=== PATIENT | male | born 1960 | race Caucasian/White ===

== ENCOUNTER 2017-04-05 13:42 | Emergency (ER) | payer OTHER ==
[2017-04-05 13:46] VITALS: PULSE 55; RESP 18; TEMP 97.7
[2017-04-05] MEDS ORDERED: SODIUM CHLORIDE 0.9% 500 ML IV STA (13:56)
[2017-04-05] MEDS ORDERED: HYDROmorphone 1 MG/ML 1 ML SYRINGE IVP STA (13:56)
--- NOTE | 2017-04-05 14:00 | ED ---
General Adult HPI - General Chief complaint: Abdominal Pain Stated complaint: Abd Pain Time Seen by Provider: 04/05/17 13:50 Source: family, RN notes reviewed Mode of arrival: ambulatory Limitations: no limitations - History of Present Illness Initial comments: 56-year-old male presents to the emergency department with a chief complaint of umbilical hernia. Patient has a history of umbilical hernia. Patient states normally popped back in without difficulty. Patient states that today it popped out around 10:00 this morning and he's been unable to return is normal. Patient states that he has not had any nausea or vomiting with this. Patient states just his pain at the site worse to pushing on it.Patient denies any recent fever, chills, shortness of breath, chest pain, back pain, , nausea vomiting, numbness or tingling, dysuria or hematuria, constipation or diarrhea, headaches or visual changes, or any other current symptoms. - Related Data Home Medications Medication Instructions Recorded Confirmed No Known Home Medications [No 04/05/17 04/05/17 Known Home Medications] Allergies Allergy/AdvReac Type Severity Reaction Status Date / Time No Known Allergies Allergy Verified 04/05/17 14:12 Review of Systems ROS Statement: Those systems with pertinent positive or pertinent negative responses have been documented in the HPI. ROS Other: All systems not noted in ROS Statement are negative. Past Medical History Past Medical History: No Reported History Additional Past Medical History / Comment(s): hernia History of Any Multi-Drug Resistant Organisms: None Reported Past Surgical History: No Surgical Hx Reported Past Psychological History: No Psychological Hx Reported Smoking Status: Never smoker Past Alcohol Use History: Occasional Past Drug Use History: None Reported General Exam - General Exam Comments Initial Comments: General: The patient is awake and alert, in no distress, and does not appear acutely ill. Eye: Pupils are equal, round. Ears, nose, mouth and throat: There are moist mucous membranes. Neck: The neck is supple, there is no tenderness. Cardiovascular: There is a regular rate and rhythm. No murmur, rub or gallop is appreciated. Respiratory: Lungs are clear to auscultation, respirations are non-labored, breath sounds are equal. No wheezes, stridor, rales, or rhonchi. Gastrointestinal: Umbilical hernia hard to palpation. Soft, non-distended, non- tender abdomen without masses or organomegaly noted. There is no rebound or guarding present. No CVA tenderness. Bowel sounds are unremarkable. Musculoskeletal: Normal ROM, no tenderness, There is no pedal edema. There is no calf tenderness or swelling. Sensation intact. Pulses equal bilaterally 2+. Neurological: CN II-XII intact, There are no obvious motor or sensory deficits. Coordination appears grossly intact. Speech is normal. Skin: Skin is warm and dry and no rashes or lesions are noted. Psychiatric: Cooperative, appropriate mood & affect, normal judgment. Limitations: no limitations Course Vital Signs 04/05/17 04/05/17 13:44 14:13 Temperature 97.7 F Pulse Rate 55 L 55 L Respiratory 18 18 Rate Blood Pressure 152/78 152/86 O2 Sat by Pulse 100 99 Oximetry Procedures - Procedures Initial comment: Patient was placed in Trendelenburg and ice packs were placed upon his abdomen. He sat for 30 minutes and pain medication given. Pressure was given to the abdomen. The umbilical hernia was reduced. Medical Decision Making - Medical Decision Making 56-year-old male presents to the emergency department with what appears to be an umbilical hernia. We were able to reduce this here in the emergency department. This time we discussed follow-up with surgery given follow-up information. We discussed return parameters and all his questions. He stated he understood all questions have been answered. He will be discharged. Disposition Clinical Impression: Umbilical hernia Disposition: HOME SELF-CARE Condition: Stable Instructions: Umbilical Hernia (ED) Additional Instructions: Please use medication as discussed. Please follow up with family doctor if symptoms have not improved over the next two days. Please return to the emergency room if your symptoms increase or worsen or for any other concerns. Referrals: Primo Richard DO [Primary Care Provider] - 1-2 days Shadia Mary MD [STAFF PHYSICIAN] - 1-2 days Time of Disposition: 14:38
[2017-04-05 14:37] LABS: Basophils # (A) 0.1 k/uL (0-0.2); Basophils % (A) 1 %; CH 32.9; CHCM 33.6; Eosinophils # (A) 0.1 k/uL (0-0.7); Eosinophils % (A) 1 %; HCT 49.3 % (39.0-53.0); HDW 2.06; Luc # (Auto) 0.12; Luc % (Auto) 2; Lymphocytes # (A) 0.5 k/uL (1.0-4.8); Lymphocytes % (A) 8 %; MCH 31.8 pg (25.0-35.0); MCHC 32.4 g/dL (31.0-37.0); MCV 98.3 fL (80.0-100.0); Mean Platelet Volume 7.4; Monocytes # (A) 0.4 k/uL (0-1.0); Monocytes % (A) 6 %; Neutrophils # (A) 5.2 k/uL (1.3-7.7); Neutrophils % (A) 83 %; RBC 5.01 m/uL (4.30-5.90); RDW 14.5 % (11.5-15.5); WBC 6.3 k/uL (3.8-10.6); WBC (Perox) 5.84
[2017-04-05 14:45] LABS: ALT 69 U/L (21-72); AST 37 U/L (17-59); Alkaline Phosphatase 59 U/L (38-126); Anion Gap 12 mmol/L; Blood Urea Nitrogen 16 mg/dL (9-20); Calcium 9.8 mg/dL (8.4-10.2); Carbon Dioxide 27 mmol/L (22-30); Chloride 102 mmol/L (98-107); Glucose 121 mg/dL (74-99); Non-African American GFR(MDRD) >60 (>60 ml/min/1.73 sqM); Potassium 4.1 mmol/L (3.5-5.1); Sodium 141 mmol/L (137-145); Total Bilirubin 0.7 mg/dL (0.2-1.3); Total Protein 7.8 g/dL (6.3-8.2)
[2017-04-05 14:47] VITALS: BP 138/81
== END 2017-04-05 14:47 | disposition home or self-care (01) ==
LOC: EC 13:42
DX: K42.9 Umbilical hernia without obstruction or gangrene (principal)
CPT/HCPCS: 36415; 80053; 83605; 85025; 99284; 96374; J1170

== ENCOUNTER → 2017-05-01 | Outpatient (CLI) | payer OTHER ==
--- NOTE | 2017-05-01 10:48 | CT ---
EXAMINATION TYPE: CT abdomen pelvis w con DATE OF EXAM: 05/01/2017 COMPARISON: NONE INDICATION: umbilical hernia DLP: 1697.70 mGycm, Automated exposure control for dose reduction was used. CONTRAST: 100 mL of Omnipaque 300. Study performed with Oral Contrast TECHNIQUE: Axial images were obtained from above the diaphragm to the pubic rami in the axial plane a t 5 mm thick sections. Reconstructed images are reviewed on the computer in the coronal plane. FINDINGS: Limited CT sections are obtained the lung bases. The lung bases are clear. CT ABDOMEN: Liver: Normal Spleen: Normal Pancreas: Normal Adrenal glands: The adrenal glands are normal. Gallbladder: Normal Kidneys: No masses are evident. No hydronephrosis is present. No cysts are present. Delayed images were obtained through the kidneys, which remain unremarkable. Aorta: Normal Inferior vena cava: Normal. CT PELVIS: In the periumbilical region there is an area of increased density with an opening of an es timated 0.6 cm and measuring 4.2 x 4.9 cm in size. Incarcerated mesenteric fat should be considered. No loops of bowel appear to be involved. Loops of bowel within the abdomen and pelvis are normal. There are loops of bowel which are incom pletely distended or lack oral contrast limiting their evaluation. Appendix: Normal as visualized. Urinary bladder: Normal. Genitourinary structures: Prostate contains calcification. Osseous structures: No suspicious lytic or sclerotic lesions. IMPRESSIONS: 1. Periumbilical hernia containing mesenteric fat. This has increased density incarceration should b e considered. No loops of bowel appear to be involved.
== END | disposition home or self-care (01) ==
LOC: RADCTMAIN 09:00
PROVIDERS: ATTEND Surgery
DX: K42.9 Umbilical hernia without obstruction or gangrene (principal)
CPT/HCPCS: 74177; Q9967

== ENCOUNTER → 2017-10-09 | Outpatient (CLI) | payer OTHER ==
[2017-10-09 11:39] LABS: HCT 44.5 % (39.0-53.0); HGB 14.4 gm/dL (13.0-17.5); MCH 30.2 pg (25.0-35.0); MCHC 32.3 g/dL (31.0-37.0); MCV 93.6 fL (80.0-100.0); Mean Platelet Volume 6.9; Platelet Count 248 k/uL (150-450); RBC 4.75 m/uL (4.30-5.90); RDW 13.2 % (11.5-15.5); WBC 5.4 k/uL (3.8-10.6)
[2017-10-09 11:58] LABS: Partial Thromboplastin Time 22.4 sec (22.0-30.0); Prothrombin Time 9.9 sec (9.0-12.0)
[2017-10-10 16:30] LABS: ALT 57 U/L (21-72); AST 29 U/L (17-59); Albumin 4.1 g/dL (3.5-5.0); Alkaline Phosphatase 61 U/L (38-126); Anion Gap 11 mmol/L; Blood Urea Nitrogen 19 mg/dL (9-20); Calcium 9.8 mg/dL (8.4-10.2); Carbon Dioxide 27 mmol/L (22-30); Chloride 103 mmol/L (98-107); Glucose 118 mg/dL (74-99); Potassium 4.5 mmol/L (3.5-5.1); Sodium 141 mmol/L (137-145); Total Bilirubin 0.4 mg/dL (0.2-1.3); Total Protein 7.5 g/dL (6.3-8.2)
== END | disposition home or self-care (01) ==
LOC: LABPAT 10:45
PROVIDERS: ATTEND Surgery Plastic and Reconstructive Surgery
DX: Z01.818 Encounter for other preprocedural examination (principal); Z01.812 Encounter for preprocedural laboratory examination; I10 Essential (primary) hypertension; N40.1 Benign prostatic hyperplasia with lower urinary tract symptoms; K43.9 Ventral hernia without obstruction or gangrene
CPT/HCPCS: 36415; 80053; 84153; 85027; 85610; 85730; 93005

== ENCOUNTER 2017-10-12 07:27 | Day surgery (SDC) | payer OTHER ==
[2017-10-09 16:37] VITALS: BMI 34.0
--- NOTE | 2017-10-12 00:39 | P.GSHP ---
History of Present Illness H&P Date: 10/12/17 CHIEF COMPLAINT: Ventral hernia. HISTORY OF PRESENT ILLNESS: The patient is a 57-year-old male who presents with a history of swelling along the umbilicus. Findings were consistent with ventral hernia initial presentation. Now he presents for further evaluation and management. PAST MEDICAL HISTORY: Please see list. PAST SURGICAL HISTORY: Please see list. MEDICATIONS: Please see list. ALLERGIES: Please see list. SOCIAL HISTORY: No illicit drug use FAMILY HISTORY: No reports of Crohn disease or ulcerative colitis. REVIEW OF ORGAN SYSTEMS: CONSTITUTIONAL: No reports of fevers or chills. GI: Denies any blood in stools or constipation. PHYSICAL EXAM: VITAL SIGNS: Stable GENERAL: Well-developed pleasant female in no acute distress. HEENT: No scleral icterus. Extraocular movements grossly intact. Moist buccal mucosa. NECK: Supple without lymphadenopathy. CHEST: Unlabored respirations. Equal bilateral excursions. CARDIOVASCULAR: Regular rate and rhythm. Distal 2+ pulses. ABDOMEN: Soft, nondistended. Palpable defect of the umbilicus. MUSCULOSKELETAL: No clubbing, cyanosis, or edema. ASSESSMENT: 1. Ventral hernia. PLAN: 1. Recommend proceeding with a robotic ventral hernia repair with mesh. 2. Benefits and risks of surgical intervention was discussed including possibility of open technique. 3. DVT prophylaxis. 4. Antibiotic prophylaxis. Past Medical History Past Medical History: No Reported History Additional Past Medical History / Comment(s): hernia,ulcerative colitis History of Any Multi-Drug Resistant Organisms: None Reported Past Surgical History: No Surgical Hx Reported Additional Past Surgical History / Comment(s): colonoscopy,cataract rt eye Past Anesthesia/Blood Transfusion Reactions: No Reported Reaction Additional Past Anesthesia/Blood Transfusion Reaction / Comment(s): never has had general anesthesia Smoking Status: Former smoker - Past Family History Mother Family Medical History: No Reported History Father Family Medical History: Cancer Medications and Allergies Home Medications Medication Instructions Recorded Confirmed Type No Known Home Medications [No 04/05/17 10/09/17 History Known Home Medications] Allergies Allergy/AdvReac Type Severity Reaction Status Date / Time No Known Allergies Allergy Verified 10/09/17 16:23
[~2017-10-12 07:27] MED LIST: DEXAMETHASONE SOD PHOSPHATE 10 MG/ML 1 ML VIAL IV ONE; HEPARIN SODIUM,PORCINE 5,000 UNIT/ML 1 ML VIAL SQ ONE; LACTATED RINGERS 1,000 ML IV SCH; LIDOCAINE 1% 20 ML VIAL (10MG/ML) FOR IV START INTRADERMA PRN; ONDANSETRON 4 MG/2 ML VIAL IVP ONE; SCOPOLAMINE 1.5MG/72HR PATCH TRANSDERM ONE; ceFAZolin IN SWFI 2 GM/20 ML SYRINGE IVP ONE; fentaNYL (PF) 50 MCG/ML 2 ML AMP IV PRN
[2017-10-12] MEDS ORDERED: BUPIVACAINE (PF) 0.25% 30 ML VIAL SQ ONE ×2 (10:29→12:00)
[2017-10-12] MEDS ORDERED: NEOSTIGMINE 1 MG/ML 10 ML VIAL ONE (10:36)
[2017-10-12] MEDS ORDERED: PROPOFOL 10 MG/ML 20 ML VIAL IV ONE (10:36)
[2017-10-12] MEDS ORDERED: SUCCINYLCHOLINE CHLORIDE 100 MG/5 ML SYR IV ONE (10:36)
[2017-10-12] MEDS ORDERED: KETOROLAC 30 MG/ML 1 ML VIAL ONE (10:36)
[2017-10-12] MEDS ORDERED: MIDAZOLAM 2 MG/2 ML VIAL ONE (10:36)
[2017-10-12] MEDS ORDERED: LIDOCAINE 1% INJ 10MG/ML (20 ML MDV) ONE (10:36)
[2017-10-12] MEDS ORDERED: fentaNYL (PF) 50 MCG/ML 2 ML AMP ONE (10:36)
[2017-10-12] MEDS ORDERED: HYDROmorphone (PF) 1 MG/ML ONE (10:36)
[2017-10-12] MEDS ORDERED: GLYCOPYRROLATE 0.2 MG/ML 2 ML VIAL ONE (10:36)
[2017-10-12] MEDS ORDERED: ROCURONIUM BROMIDE 10 MG/ML 10 ML VIAL IV ONE (10:36)
[2017-10-12] MEDS ORDERED: LACTATED RINGERS 1,000 ML IV ONE (11:07)
[2017-10-12 12:33] VITALS: RESP 16; TEMP 98.1
--- NOTE | 2017-10-12 12:48 | P.OP ---
Date of Procedure: 10/12/17 Description of Procedure: SURGEON: BRIONNA CARRILLO MD WARRANTY ADMINISTRATOR: Ashley Betancur PREOPERATIVE DIAGNOSES: 1. Umbilical ventral hernia with incarceration, initial 2. Obesity due to excess calories. 3. BMI 34.0. 4. Chronic alcohol use. POSTOPERATIVE DIAGNOSES: 1. Umbilical ventral hernia with incarceration, initial 2. Obesity due to excess calories. 3. BMI 34.0. 4. Chronic alcohol use. OPERATION: 1. Robotic-assisted da Kiersten Xi laparoscopic repair of umbilical ventral hernia 3 cm with Bard Vent[address]ight ST mesh 11.4 cm. ANESTHESIA: General with local anesthetic ESTIMATED BLOOD LOSS: 10 mL. SPECIMENS: None. COMPLICATIONS: None. INDICATIONS: The patient is a 57-year-old male who presents with umbilical hernia. Surgical intervention with laparoscopic versus robotic and open techniques were reviewed. Placement of mesh was also reviewed. Benefits and risks were thoroughly described. Informed consent was obtained. DESCRIPTION OF PROCEDURE: The patient was brought into the operating room and laid in supine position. After general induction, the abdomen had been prepped and draped in standard sterile fashion. Ioban draping was also placed. Prior to incision, a timeout protocol was confirmed with surgical team regarding the patient's name including procedures to be performed. The robot was primed prior to the procedure. A field block using local anesthetis was placed along hernia site including the proposed port sites. Initial incision was made with an #11 blade along the left upper quadrant. A 0 degree 5 mm laparoscopic trocar entry was performed. Diagnostic laparoscopy demonstrated incarcerated omentum along the umbilicus. A 8 mm trocar was placed below the xiphoid. Another 8-mm port was placed along the right upper abdomen. The 5-mm port was exchanged for an 8 mm robotic port of the left upper abdomen. Placements of the ports were 15 to 20 cm from the target anatomy and approximately 10 cm apart. Next, a 11.[address] mesh was entered into abdominal cavity with the rough side of the mesh marked. The [employer] XI robot was previously primed, prepped and draped then docked along the left side of the patient. I then sat at the robot [employer] Xi console where working arms of the robot including Bovie cautery connected to robotic scissors and graspers placed by the medical office assistant instructor. The hernia bordering fascia was cleaned of peritoneal fat to allow for 3 to 5 cm margin of the mesh. The incarcerated omentum was reduced into abdominal cavity using direct pressure over the umbilicus. Fluid and edematous tissue was reduced into the abdomen consistent with chronically incarcerated hernia. Next, hemostasis was checked with cautery. The hernia defect of 3-cm was oversewn using 0-V LOC with imbrication 2. Ventralight ST 11.4 cm mesh was placed with the rough side of the mesh toward the anterior abdominal wall. The smooth side was placed towards the bowel. The mesh was oversewn using 2-0 V LOC 9-inch x 2 from peritoneum to fascia to the mesh approach. A final endoscopic imaging was obtained. All instruments and pneumoperitoneum were evacuated from the abdominal cavity. The robot was undocked from the patient. I re-scrubbed into the case for closure of incisions. The specimen was removed from the abdominal cavity using the Endo Catch bag after widening the incision of the left upper quadrant. The fascia of was probed and less than 8 mm in size. Incisions were cleansed using saline and hydrogen peroxide solution. The incisions were closed using 4- 0 Monocryl in an interrupted subcuticular fashion. Dermabond was applied to the skin. Along the umbilicus, 4 x 4 was folded and used as umbilical dressing with Tegaderm. At the end of the procedure, needle, sponge, and instrument count had been verified correct by rn neurosurgical. The patient was taken to the postanesthesia care unit in stable condition with abdominal binder. FINDINGS: 1. Initial incarcerated umbilical ventral hernia 3 cm. 2. Extremely small left indirect hernia less than 8-mm in size. Plan - Discharge Summary New Discharge Prescriptions: New Ibuprofen [Motrin] 600 mg PO Q8HR PRN #30 tab PRN Reason: Pain HYDROcodone/APAP 5-325MG [[place] 5-325] 1 tab PO Q6HR PRN #15 tab PRN Reason: Pain Discharge Medication List HYDROcodone/APAP 5-325MG [[place] 5-325] 1 tab PO Q6HR PRN #15 tab 10/12/17 [Rx] Ibuprofen [Motrin] 600 mg PO Q8HR PRN #30 tab 10/12/17 [Rx] Follow up Appointment(s)/Referral(s): Brionna Carrillo MD [STAFF PHYSICIAN] - 10/30/17 Patient Instructions/Handouts: Ventral Hernia Repair (DC), Abdominal Binder ( GEN), Abdominal Binder (DC) Activity/Diet/Wound Care/Special Instructions: No lifting over 4 pounds in 4 weeks. Wear abdominal binder at all times. May shower. No bath tub soaks. Discharge Disposition: HOME SELF-CARE
[2017-10-12] MEDS ORDERED: HYDROcodone/APAP 5-325MG 1 EACH TAB PO ONE (13:43)
[2017-10-12 13:47] VITALS: BP 130/82; PULSE 64
== END 2017-10-12 14:29 | disposition home or self-care (01) ==
LOC: OR 07:27
PROVIDERS: ATTEND Surgery Plastic and Reconstructive Surgery
DX: K42.0 Umbilical hernia with obstruction, without gangrene (principal); K46.9 Unspecified abdominal hernia without obstruction or gangrene; E66.09 Other obesity due to excess calories; Z68.34 Body mass index [BMI] 34.0-34.9, adult; Z72.89 Other problems related to lifestyle; K51.90 Ulcerative colitis, unspecified, without complications; Z87.891 Personal history of nicotine dependence
CPT/HCPCS: 86900; 86901; 86850; 88302; 49653; C1781; J2250; J1644; J1100; J2710; J2405; J2001; J3010; J1885; J1170; J0330; J2704; J0690

== ENCOUNTER 2024-02-13 21:49 | Emergency (ER) | payer BC, OTHER ==
[2024-02-13 22:01] VITALS: RESP 20
[2024-02-13] MEDS: DIPH,PERTUS(ACELL)TETVAC-LF 0.5 ML VIAL IM ONE (23:06)
--- NOTE | 2024-02-14 00:06 | CT ---
EXAM: CT Head Without Intravenous Contrast CLINICAL HISTORY: ITS.REASON CT Reason: head injury loc TECHNIQUE: Axial computed tomography images of the head/brain without intravenous contrast. CTDI is 45.2 mGy and DLP is 1086 mGy-cm. This CT exam was performed using one or more of the following dose reduction techniques: automated exposure control, adjustment of the mA and/or kV according to patient size, and/or use of iterative reconstruction technique. COMPARISON: No relevant prior studies available. FINDINGS: No acute intracranial hemorrhage. No midline shift or mass effect. The territorial rodgers-white matter differentiation is maintained throughout. Age-related cerebral volume loss. Periventricular and subcortical white matter hypoattenuation, consistent with chronic microangiopathy. The visualized orbits appear grossly unremarkable. The calvarium is intact. LEFT parietal scalp laceration. The visualized paranasal sinuses and mastoid air cells are grossly clear. IMPRESSION: 1. No acute intracranial hemorrhage, midline shift, or mass effect. 2. LEFT parietal scalp laceration. EXAM: CT Cervical Spine Without Intravenous Contrast CLINICAL HISTORY: ITS.REASON CT Reason: head injury loc TECHNIQUE: Axial computed tomography images of the cervical spine without intravenous contrast. CTDI is 14.2 mGy and DLP is 406.1 mGy-cm. This CT exam was performed using one or more of the following dose reduction techniques: automated exposure control, adjustment of the mA and/or kV according to patient size, and/or use of iterative reconstruction technique. COMPARISON: No relevant prior studies available. FINDINGS: The vertebral body heights are maintained. The craniocervical junction is intact. The atlanto-dens interval is maintained. The dens is intact. There is no spondylolisthesis. Multilevel cervical spondylosis and degenerative disc disease. Straightening of the cervical lordosis. The unenhanced neck soft tissues are grossly unremarkable. The visualized lung apices are grossly clear. IMPRESSION: No acute fracture or subluxation of the cervical spine.
--- NOTE | 2024-02-14 00:19 | ED ---
General Adult HPI - General Chief complaint: Head Injury Stated complaint: Head Injury Time Seen by Provider: 02/13/24 22:08 Source: patient, RN notes reviewed Mode of arrival: wheelchair Limitations: no limitations - History of Present Illness Initial comments: 63-year-old male presented to the ED with a chief complaint of fall. Patient states that he was outside and his dogs were chasing each other. Did not realize that his dog was behind him and he went to step back and he fell backwards tripping on the dog hitting his head on a tire. The tire had a large lug nut which also hit him in his head causing laceration. This was witnessed by his son-in-law who reported LOC for 1 to 2 minutes. At this time reports patient acting his normal self. Denies any other injury at this time. Tetanus status unknown. - Related Data Previous Rx's Medication Instructions Recorded HYDROcodone/APAP 5-325MG [[place] 1 tab PO Q6HR PRN #15 tab 10/12/17 5-325] Ibuprofen [Motrin] 600 mg PO Q8HR PRN #30 tab 10/12/17 Allergies Allergy/AdvReac Type Severity Reaction Status Date / Time No Known Allergies Allergy Verified 02/13/24 22:01 Review of Systems ROS Statement: Those systems with pertinent positive or pertinent negative responses have been documented in the HPI. ROS Other: All systems not noted in ROS Statement are negative. Past Medical History Past Medical History: No Reported History Additional Past Medical History / Comment(s): hernia History of Any Multi-Drug Resistant Organisms: None Reported Past Surgical History: Hernia Repair Past Psychological History: No Psychological Hx Reported Smoking Status: Never smoker Past Alcohol Use History: Occasional Past Drug Use History: None Reported General Exam Limitations: no limitations General appearance: alert, in no apparent distress Head exam: Present: other (No lamb signs or raccoon's eyes. Approximately 7 centimeter laceration on the posterior scalp.) Eye exam: Present: PERRL, EOMI Neck exam: Present: normal inspection Respiratory exam: Present: normal lung sounds bilaterally Cardiovascular Exam: Present: regular rate GI/Abdominal exam: Present: soft, normal bowel sounds. Absent: distended, tenderness, guarding, rebound, rigid Extremities exam: Present: other (Full active range of motion bilateral upper lower extremities. Radial pulses intact bilaterally, DP/PT pulses intact bilaterally.) Back exam: Present: other (No midline spinal tenderness to palpation.) Neurological exam: Present: alert, oriented X3, normal gait Skin exam: Present: warm, dry Course Vital Signs 02/13/24 21:51 Temperature 97.6 F Pulse Rate 70 Respiratory 20 Rate Blood Pressure 152/83 O2 Sat by Pulse 97 Oximetry Procedures - Laceration Laceration #1 Site: scalp Size (cm): 7 Description: linear Depth: simple, single layer Anesthetic Used: lidocaine 2%, with epi Amount (mls): 3 Pre-repair: wound explored, irrigated extensively, deep structures intact Type of Sutures: other Size of Sutures: other Number of Sutures: 11 (ru) Patient Tolerated Procedure: well, no complications Medical Decision Making - Medical Decision Making Was pt. sent in by a medical professional or institution (Dr. PA, ROBOTIC MACHINE OPERATOR, urgent care, hospital, or prison...) When possible be specific @ -No Did you speak to anyone other than the patient for history (EMS, parent, family, police, friend...)? What history was obtained from this source @ -Spoke to patient's son-in-law who reports that patient has been acting his normal self since head injury. Did you review nursing and triage notes (agree or disagree)? Why? @ -I reviewed and agree with nursing and triage notes Were old charts reviewed (outside hosp., previous admission, EMS record, old EKG, old radiological studies, urgent care reports/EKG's, prison records)? Report findings @ -No old charts were reviewed Differential Diagnosis (chest pain, altered mental status, abdominal pain women, abdominal pain men, vaginal bleeding, weakness, fever, dyspnea, syncope, headache, dizziness, GI bleed, back pain, seizure, CVA, palpatations, mental health, musculoskeletal)? @ -Differential Musculoskeletal Muscular strain, contusion, ligament sprain, fracture, arthritis, septic arthritis, bursitis, cellulitis, muscle spasm, nerve compression, DVT, arterial occlusion, herpes zoster, electrolyte abnormality, tumor.... This is not meant to be in all inclusive list EKG interpreted by me (3pts min.). @ -None X-rays interpreted by me (1pt min.). @ -None done CT interpreted by me (1pt min.). @ -None done U/S interpreted by me (1pt. min.). @ -None done What testing was considered but not performed or refused? (CT, X-rays, U/S, labs)? Why? @ -None What meds were considered but not given or refused? Why? @ -None Did you discuss the management of the patient with other professionals (professionals i.e. , PA, ROBOTIC MACHINE OPERATOR, lab, RT, psych nurse, nursing home social worker, financial quantitative analyst, teacher, safety instruction police officer, caser shoe parts)? Give summary @ -No Was smoking cessation discussed for >3mins.? @ -No Was critical care preformed (if so, how long)? @ -No Were there social determinants of health that impacted care today? How? (Homelessness, low income, unemployed, alcoholism, drug addiction, transportation, low edu. Level, literacy, decrease access to med. care, residential, rehab)? @ -No Was there de-escalation of care discussed even if they declined (Discuss DNR or withdrawal of care, Hospice)? DNR status @ -No What co-morbidities impacted this encounter? (DM, HTN, Smoking, COPD, CAD, Cancer, CVA, ARF, Chemo, Hep., AIDS, mental health diagnosis, sleep apnea, morbid obesity)? @ -None Was patient admitted / discharged? Hospital course, mention meds given and route, prescriptions, significant lab abnormalities, going to OR and other pertinent info. @ -Discharge 63-year-old male presented to the ED status post mechanical fall with head injury and LOC. No other injuries at this time. CT brain and cervical spine reviewed which revealed no evidence of acute finding. Tetanus updated. Laceration was repaired. For further details please see procedure note. Discharged home in stable condition. Discussed return precautions with patient who verbalized agreement. Undiagnosed new problem with uncertain prognosis? @ -No Drug Therapy requiring intensive monitoring for toxicity (Heparin, Nitro, Insulin, Cardizem)? @ -No Were any procedures done? @ -Yes, laceration repair Diagnosis/symptom? @ -Status post mechanical fall, laceration Acute, or Chronic, or Acute on Chronic? @ -Acute Uncomplicated (without systemic symptoms) or Complicated (systemic symptoms)? @ -Uncomplicated Side effects of treatment? @ -No Exacerbation, Progression, or Severe Exacerbation? @ -No Poses a threat to life or bodily function? How? (Chest pain, [place], MA, pneumonia, PE, COPD, DKA, ARF, appy, cholecystitis, CVA, Diverticulitis, Homicidal, Suicidal, threat to staff... and all critical care pts) @ -No Disposition Clinical Impression: Fall, Laceration Disposition: HOME SELF-CARE Condition: Good Instructions (If sedation given, give patient instructions): Staple Care (ED) Additional Instructions: Please return to the Emergency Department if symptoms worsen or any other concerns. Take [id number] medications as needed for pain. Please return in 7 to 10 days for staple removal or present to an urgent care or your primary care provider. Is patient prescribed a controlled substance at d/c from ED?: No Referrals: Primo Richard DO [Primary Care Provider] - 1-2 days Time of Disposition: 00:24
[2024-02-14] MEDS: ACETAMINOPHEN TAB 500 MG TAB PO STA (00:24)
[2024-02-14 00:31] VITALS: BP 153/85; PULSE 66; TEMP 97.8
== END 2024-02-14 00:31 | disposition home or self-care (01) ==
LOC: EC 21:49
DX: S01.01XA Laceration without foreign body of scalp, initial encounter (principal); Z23 Encounter for immunization; W01.198A Fall on same level from slipping, tripping and stumbling with subsequent striking against other object, initial encounter
CPT/HCPCS: 12002; 70450; 72125; 90471; 90715; 99284

== ENCOUNTER → 2024-02-28 | Outpatient (CLI) | payer BC ==
--- NOTE | 2024-02-28 08:37 | CT ---
EXAMINATION TYPE: CT brain wo con DATE OF EXAM: 02/28/2024 COMPARISON: 02/13/2024 INDICATION: PINO DLP: 1195 mGycm, Automated exposure control for dose reduction was used. CONTRAST: None CT of the brain is performed utilizing 3 mm thick sections through the posterior fossa and 3 mm thick sections through the remaining calvarium. Study is performed within 24 hours of arrival to the hosp [place]. No abnormal hyperdensity is present to suggest an acute intracranial hemorrhage. No mass lesion is evident. No acute infarcts are evident. Ventricles and sulci are appropriate for the patient age. Paranasal sinuses and mastoid air cells within the [id number] are clear. IMPRESSION: 1. No acute intracranial process. Follow-up MRI can be performed as clinically indicated
== END | disposition home or self-care (01) ==
LOC: RADCTMAIN 06:38
PROVIDERS: ATTEND Family Medicine
DX: S09.90XD Unspecified injury of head, subsequent encounter (principal); R51.9 Headache, unspecified; X58.XXXD Exposure to other specified factors, subsequent encounter
CPT/HCPCS: 70450